=== PATIENT | male | born 1995 | race African-American/Black ===

== ENCOUNTER 2017-02-02 13:02 | Emergency (ER) | payer OTHER ==
[2017-02-02 13:09] VITALS: BP 159/85; BMI 26.4
== END 2017-02-02 14:43 | disposition left against medical advice (07) ==
LOC: ER 14:09
DX: M54.5 Low back pain (principal)
CPT/HCPCS: 99281

== ENCOUNTER 2017-03-04 21:29 | Emergency (ER) | payer OTHER ==
[2017-03-04 21:50] VITALS: BP 143/88; BMI 26.4
--- NOTE | 2017-03-04 22:50 | DR.GENAD ---
HPI - PCP Primary Care Physician: NFD - Complaint/Symptoms Chief Complaint Doctors Comments: I agree with history as stated. Chief Complaint:: THINK I MAY HAVE BROKEN MY LEFT WRIST ON SARA WHEN I FELL OFF THE FRONT PORCH. TRIED TO BREAK MY FALL WITH MY HAND Self Treatment fo Chief Complaint: IBUPROFEN 800MG YESTERDAY - Source History Provided: Patient - Mode of Arrival Mode of Arrival: Ambulatory - Timing Onset of Chief Complaint: 02/26/17 PMH - PMH Past Medical History: Yes Past Medical History Comment: BACK PROBLEMS HERNIATED DISC Past Surgical History: No - Family History History of Family Medical Conditions: Yes Family Medical History: Diabetes Mellitus, [place], Hypertension - Social History Does patient currently use any type of tobacco product: No Type of Tobacco Use: None Does any household member use tobacco: Yes Alcohol Use: None Do you use any recreational Drugs:: No Lives With: Friend Lives Where: Home - infectious screening In the last 2 months have you had wt loss of >10#?: NO Have you had fever, night sweats or hemotysis?: No Have you traveled outside the country in the last 6 months?: No Isolation: Standard ROS - Review of Systems Eyes: No Symptoms Reported ENTM: No Symptoms Reported Respiratoy: No Symptoms Reported Cardiovascular: No Symptoms Reported Gastrointestinal/Abdominal: No Symptoms Reported Genitourinary: No Symptoms Reported Neurological: No Symptoms Reported Musculoskeletal: No Symptoms Reported, Wrist (left wrist pain) Integumentary: No Symptoms Reported Hematologic/Lymphatic: No Symptoms Reported Endocrine: No Symptoms Reported Psychiatric: No Symptoms Reported All Other Systems: Reviewed and Negative PE - Vital Signs Vitals: Temperature 99.8 F Pulse Rate 57 Respiratory Rate 16 Blood Pressure 143/88 O2 Sat by Pulse Oximetry 97 - General Limitations: No Limitations General Appearance: Alert, In No Apparent Distress - Head Head Exam: Normal Inspection, Atraumatic - Eyes Eye exam: Normal Appearance, PERRL, EOMI - ENT ENT Exam: Normal Exam External Ear Exam: Normal External Inspection TM/Canal Exam: Bilateral Normal Nose Exam: Normal Nose Exam Mouth Exam: Normal Inspection Throat Exam: Normal Inspection - Neck Neck Exam: Normal Inspection - Chest Chest Inspection: Normal Inspection - Respiratory Respiratory Exam: Normal Lung Sounds Bilat Respiratory Exam: Bilateral Clear to Auscultation - Cardiovascular Cardiovascular Exam: Regular Rate, Normal Rhythm - Abdominal Exam Abdominal Exam: Normal Inspection Abdominal Tenderness: negative: RUQ, RLQ, LUQ, LLQ, Epigastrium, Suprapubic, Diffuse, Mild, Moderate, Severe, Other - Extremities Extremities Exam: Normal Inspection, Full ROM, Other (Left wrist w/o edema, normal positioning) - Back Back Exam: Normal Inspection, Full ROM - Neurologic Neurological Exam: Alert, Oriented X3, CN II-XII Intact - Psychiatric Psychiatric Exam: Normal Affect - Skin Skin Exam: Warm, Dry, Intact Course - Reevaluation 1st: Unchanged ROR - XRAY XRAY Interpreted by: Self (wrist: no fracture can be identified) - Diagnosis Discharge Problem: Contusion of wrist, left Qualifiers: Encounter type: initial encounter Qualified Code(s): S60.212A - Contusion of left wrist, initial encounter - Discharge Plan Condition: Stable - Follow ups/Referrals Follow ups/Referrals: NFD,None [Primary Care Provider] - 3 days - Instructions
--- NOTE | 2017-03-05 02:03 | RAD ---
Left wrist, three views Indication: Left wrist pain, unspecified injury 6 days ago Comparison: None Findings: The joint spaces are intact. No acute cortical disruption or malalignment identified. No si gnificant soft tissue abnormality. Impression: Negative exam. Reported By:
== END 2017-03-04 23:36 | disposition home or self-care (01) | DRG 605 ==
LOC: ER 21:29
DX: S60.212A Contusion of left wrist, initial encounter (principal); W17.89XA Other fall from one level to another, initial encounter; Y93.89 Activity, other specified; Y92.89 Other specified places as the place of occurrence of the external cause
CPT/HCPCS: 29260; 73100; 99282; 99283